=== PATIENT | female | born 1945 | race Caucasian/White ===

== ENCOUNTER 2017-12-03 01:47 | Outpatient (CLI) | payer MEDICARE, OTHER, SELFPAY ==
[2017-12-03 08:08] LABS: HCT 46.1 % (36.0-46.0); HGB 15.1 g/dL (12.0-15.5); Mean Corp. HGB Concentration 32.8 g/dL (32.0-36.0); Mean Corpuscular Hemoglobin 30.3 pg (27.0-33.0); Mean Corpuscular Volume 92.4 fL (80-95); Mean Platelet Volume 10.5 fL (8.0-11.0); Platelet Count 192 x1000/uL (130-400); RBC 4.99 m/cumm (4.00-5.20); RBC Distribution Width 13.1 % (11.7-14.6); White Blood Cell Count 5.57 k/cumm (4.4-10.8)
[2017-12-03 08:49] LABS: ALT 24 U/L (12-78); AST 25 U/L (15-37); Albumin 4.3 g/dL (3.4-5.0); Alkaline Phosphatase 70 U/L (46-116); Anion Gap 11.3 mmol/L (3-11); BUN 15 mg/dL (7-18); Bilirubin, Total 0.4 mg/dL (0.2-1.0); CO2 23.7 mmol/L (21.0-32.0); CREATININE 0.76 mg/dL (0.55-1.02); Calcium 9.1 mg/dL (8.5-10.1); Chloride 103 mmol/L (98-107); Cholesterol 327 mg/dL (50-200); Glucose 84 mg/dL (70-100); HDL Cholesterol 68 mg/dL (40-60); LDL CHOLESTEROL 234 mg/dL (<100); Potassium 4.4 mmol/L (3.5-5.1); Sodium 138 mmol/L (136-145); Total Protein 7.5 g/dL (6.4-8.2); Triglyceride 147 mg/dL (30-150)
[2017-12-03 08:51] LABS: ESR 22 MM/HR (0-30)
[2017-12-03 09:05] LABS: Creatine Kinase 114 U/L (26-192)
== END 2017-12-03 02:07 ==
PROVIDERS: Visit Provider Family Medicine
DX: E78.5 Hyperlipidemia, unspecified (principal); M25.50 Pain in unspecified joint
CPT/HCPCS: 36415; 80053; 80061; 82550; 83721; 85027; 85652

== ENCOUNTER 2018-12-01 07:10 | Outpatient (CLI) | payer MEDICARE, OTHER, SELFPAY ==
[2018-12-01 07:40] LABS: HCT 46.9 % (36.0-46.0); HGB 15.1 g/dL (12.0-15.5); Mean Corp. HGB Concentration 32.2 g/dL (32.0-36.0); Mean Corpuscular Hemoglobin 29.6 pg (27.0-33.0); Mean Platelet Volume 10.1 fL (8.0-11.0); Platelet Count 208 x1000/uL (130-400); RBC Distribution Width 13.3 % (11.7-14.6); White Blood Cell Count 4.76 k/cumm (4.4-10.8)
[2018-12-01 08:05] LABS: ALT 24 U/L (14-59); AST 21 U/L (15-37); Albumin 4.4 g/dL (3.4-5.0); Alkaline Phosphatase 77 U/L (46-116); Anion Gap 11.2 mmol/L (3-11); BUN 11 mg/dL (7-18); Bilirubin, Total 0.5 mg/dL (0.2-1.0); CO2 24.8 mmol/L (21.0-32.0); CREATININE 0.77 mg/dL (0.55-1.02); Calcium 9.8 mg/dL (8.5-10.1); Calculated LDL 242 mg/dL; Chloride 102 mmol/L (98-107); Cholesterol 350 mg/dL (50-200); Glucose 91 mg/dL (70-100); HDL Cholesterol 65 mg/dL (40-60); Sodium 138 mmol/L (136-145); Total Protein 8.4 g/dL (6.4-8.2); Triglyceride 217 mg/dL (30-150)
== END 2018-12-01 07:30 ==
PROVIDERS: PCP Family Medicine; Visit Provider Family Medicine
DX: R73.01 Impaired fasting glucose (principal); E78.5 Hyperlipidemia, unspecified; M25.50 Pain in unspecified joint; R03.0 Elevated blood-pressure reading, without diagnosis of hypertension; D24.9 Benign neoplasm of unspecified breast
CPT/HCPCS: 36415; 80053; 80061; 85027

== ENCOUNTER 2018-12-11 01:51 | Outpatient (CLI) | payer MEDICARE, OTHER, SELFPAY ==
--- NOTE | 2018-12-11 13:30 | DI.MAMMO_ITS ---
EXAM: MG MAMMO SCREENING CLINICAL HISTORY: SCREENING Z12.31. TECHNIQUE: Mammograms were interpreted according to the usual protocol including computer analysis with CAD system, tomosynthesis and C-view imaging. COMPARISON: Comparison is made with previous images. FINDINGS: The breast tissue is heterogeneously radiodense. There is no evidence of a dominant mass or suspiciou s calcification and there has been no appreciable interval change when compared with previous images. IMPRESSION: No evidence of malignancy, category 1. Breast density, category C. Annual screening mammography is r ecommended. BI-RADS Cat 1 - Negative. Breast Density - Category C - Heterogeneously dense
== END 2018-12-11 02:11 ==
PROVIDERS: PCP Family Medicine; Visit Provider Family Medicine
DX: Z12.31 Encounter for screening mammogram for malignant neoplasm of breast (principal)
CPT/HCPCS: 77063; 77067

== ENCOUNTER 2020-11-30 02:51 | Outpatient (CLI) | payer MEDICARE, OTHER, SELFPAY ==
[2020-11-30 09:40] LABS: ALT 27 U/L (14-59); AST 20 U/L (15-37); Albumin 4.4 g/dL (3.4-5.0); Alkaline Phosphatase 70 U/L (46-116); BUN 11 mg/dL (7-18); Bilirubin, Total 0.5 mg/dL (0.2-1.0); CREATININE 0.7 mg/dL (0.55-1.02); Calcium 9.3 mg/dL (8.5-10.1); Calculated LDL 203 mg/dL (<100); Chloride 104 mmol/L (98-107); Cholesterol 299 mg/dL (<200); Glucose 84 mg/dL (74-106); HDL Cholesterol 51 mg/dL (40-60); Potassium 3.9 mmol/L (3.5-5.1); Sodium 141 mmol/L (136-145); Total Protein 7.4 g/dL (6.4-8.2); Triglyceride 229 mg/dL (<150)
[2020-11-30 09:55] LABS: Vitamin D 25 Total 29.6 ng/mL (30-100)
== END 2020-11-30 02:52 | disposition home or self-care (01) ==
LOC: LBO 02:51
PROVIDERS: PCP Family Medicine; Visit Provider Family Medicine
DX: E78.5 Hyperlipidemia, unspecified (principal); E55.9 Vitamin D deficiency, unspecified; E66.9 Obesity, unspecified; M25.59 Pain in other specified joint
CPT/HCPCS: 36415; 80053; 80061; 82306

== ENCOUNTER 2021-01-04 02:05 | Outpatient (CLI) | payer MEDICARE, OTHER, SELFPAY ==
--- NOTE | 2021-01-04 | DI.MAMMO_ITS ---
Exam(s) MAMMO SCREENING EXAM: MAMMO SCREENING CLINICAL HISTORY: SCREENING, Z12.31 TECHNIQUE: Mammograms were interpreted according to the usual protocol including computer analysis w [employer] system, tomosynthesis and C-view imaging. COMPARISON: FINDINGS: The breasts are of moderate density. There is focal asymmetric density in the upper outer quadrant o f the left breast, unchanged from multiple prior examinations including November 2018. No new mass or clumped microcalcification seen. IMPRESSION: No specific evidence of malignancy at this time. Routine screening examinations are suggested at yea rly intervals in this age group according to the ACS ACR guidelines. BI-RADS Category 1 - Negative Breast Density - Category B - Scattered areas of fibroglandular density
== END 2021-01-04 02:25 ==
PROVIDERS: PCP Family Medicine; Visit Provider Family Medicine
DX: Z12.31 Encounter for screening mammogram for malignant neoplasm of breast (principal)
CPT/HCPCS: 77063; 77067

== ENCOUNTER → 2022-01-07 02:03 | Outpatient (CLI) | payer MEDICARE, OTHER, SELFPAY ==
--- NOTE | 2022-01-07 17:30 | DI.MAMMO_ITS ---
Exam(s) MAMMO SCREENING EXAM: MAMMO SCREENING CLINICAL HISTORY: SCREENING, Z12.31 TECHNIQUE: Bilateral full field digital CC and MLO mammographic images were obtained with 3D tomosyn thesis and utilizing computer aided detection (CAD). COMPARISON: Available for comparison. FINDINGS: Masses/Architectural Distortion: None seen. Microcalcifications: No suspicious pleomorphic-type are seen. Skin Thickening/Nipple Retraction: None. IMPRESSION: 1. No significant interval change with no specific features of malignancy noted. 2. Unless there is more urgent need, screening mammography is recommended, as per [employer] guidelines. BI-RADS Category 1 - Negative Breast Density - Category B - Scattered areas of fibroglandular density Breast density category C or D implies that the patient has dense breast tissue. Dense breast tissue is very common and is not abnormal but dense breast tissue can make it harder to find cancer on a ma mmogram. Also, dense breast tissue may increase their breast cancer risk. This information about the result of the mammogram report was provided to the patient to raise their awareness. Use this report when you speak with the patient about their risks for breast cancer, which includes their family hist ory. At that time, you may recommend for more screening tests (Ultrasound or MRI) as they might be us eful based on their risk. A negative radiographic report should not delay biopsy if a dominant or clinically suspicious mass is present. Up to ten percent of cancers are not identified on mammography. A negative report may reinforce clinical impression. Adenosis and dense breasts may obscure an underlying neoplasm. False positive reports average 6 to 10%. Patient will receive a letter notifying them of these results.
== END ==
PROVIDERS: PCP Family Medicine; Visit Provider Family Medicine
DX: Z12.31 Encounter for screening mammogram for malignant neoplasm of breast (principal)
CPT/HCPCS: 77063; 77067

== ENCOUNTER 2022-02-21 09:46 | Outpatient (CLI) | payer MEDICARE, OTHER, SELFPAY ==
--- NOTE | 2022-02-21 09:00 | DI.RAD_ITS ---
Exam(s) XR KNEE RT 3V AP,LAT,JOANIE EXAM: XR KNEE RT 3V AP,LAT,JOANIE CLINICAL HISTORY: right knee pain TECHNIQUE: COMPARISON: No exams were available for comparison FINDINGS: Three views were obtained. There is a probable knee joint effusion. There is a superior patellar en thesophyte. There are minimal marginal osteophytes of all 3 joints of the knee consistent with degen erative change. No other bony or soft tissue abnormality seen. IMPRESSION: RADIATION DOSE DELIVERED: Total DLP
== END 2022-02-21 09:47 | disposition home or self-care (01) ==
LOC: DIORS 09:47
PROVIDERS: PCP Family Medicine; Referring Provider Family Medicine; Visit Provider Student in an Organized Health Care Education/Training Program
DX: M17.11 Unilateral primary osteoarthritis, right knee (principal); M23.91 Unspecified internal derangement of right knee
CPT/HCPCS: 20610; 73562; 99203; J1040

== ENCOUNTER 2022-06-19 01:36 | Outpatient (CLI) | payer MEDICARE, OTHER, SELFPAY ==
--- NOTE | 2022-06-19 07:00 | DI.MRI_ITS ---
Exam(s) MR LOWER JOINT RT WO EXAM: MR LOWER JOINT RT WO CLINICAL HISTORY: pain,internal derangement,m23.91. TECHNIQUE: Multiplanar multisequence MRI was performed. COMPARISON: CR XR KNEE RT 3V AP,LAT,JOANIE from 02/21/2022 FINDINGS: BONES: There is no fracture or contusion pattern. JOINTS: Articular cartilage is unremarkable. There is a small joint effusion. TENDONS: Extensor mechanism: Unremarkable. Medial retinaculum: Unremarkable. Lateral retinaculum: Unremarkable. Popliteus: Unremarkable. MUSCLES: Unremarkable. MENISCI: There is a tear of the body and posterior horn of the medial meniscus. The lateral meniscus is unremarkable. SOFT TISSUES: There is a popliteal cyst present. LIGAMENTS: Anterior Cruciate: Unremarkable. Posterior Cruciate: Unremarkable. Medial Collateral:Unremarkable. Lateral Collateral: Unremarkable. OTHER: IMPRESSION: 1. There is a tear of the body and posterior horn of the medial meniscus. 2. There is no evidence of a ligament tear. 3. Small joint effusion and popliteal cyst. DATA REPOSITORY:
== END 2022-06-19 01:56 ==
LOC: DI 01:36
PROVIDERS: PCP Family Medicine; Visit Provider Student in an Organized Health Care Education/Training Program
DX: M23.8X1 Other internal derangements of right knee; M25.561 Pain in right knee; M25.461 Effusion, right knee; S83.241A Other tear of medial meniscus, current injury, right knee, initial encounter; M71.21 Synovial cyst of popliteal space [Baker], right knee
CPT/HCPCS: 73721

== ENCOUNTER → 2022-06-21 10:34 | Outpatient (BNVA) | payer MEDICARE, OTHER, SELFPAY | PROVIDERS: PCP Family Medicine; Referring Provider Family Medicine; Visit Provider Student in an Organized Health Care Education/Training Program | DX: S83.231A Complex tear of medial meniscus, current injury, right knee, initial encounter (principal); X58.XXXA Exposure to other specified factors, initial encounter | CPT/HCPCS: 99214 ==

== ENCOUNTER 2022-07-31 09:40 | Day surgery (SDC) | payer MEDICARE, SELFPAY ==
[2022-07-31] VITALS (8 sets, daily range): BP systolic 133–221; BP diastolic 73–109; PULSE 69–90; RESP 16–18; TEMP 36.2–36.6; O2SAT 96–99; BMI 26.9
[2022-07-31] MEDS: Acetaminophen 500 MG TAB 1000 MG PO (10:20)
[2022-07-31] MEDS: Lactated Ringers 1,000 ML 80 ML IV (10:21)
[2022-07-31] MEDS: Celecoxib 200 MG CAP 400 MG PO (10:21)
--- NOTE | 2022-07-31 10:53 | W.ANESPRE ---
General Info Date of Service Date Performed: 07/31/22 Height: 5 ft 4 in Weight: 71.3 kg Body Mass Index (BMI): 26.9 Surgical Procedure: Operation Date: 07/31/22 12:10 Proposed Procedure Side Surgeon p Knee Arthroscopy, Partial Medial Menisectomy Right Jhon Warner MD Meds Allergies and Home Medications Allergies Allergy/AdvReac Type Severity Reaction Status Date / Time No Known Allergies Allergy Unverified 07/31/22 09:50 Home Medication Medication Instructions Recorded cholecalciferol (vitamin D3) 25 25 mcg PO DAILY 01/07/22 mcg (1,000 unit) capsule Current Visit Medications: Current Medications Generic Name Dose Route Start Last Admin Trade Name Freq PRN Reason Stop Dose Admin Acetaminophen 1,000 mg 07/31/22 06:00 07/31/22 10:20 Acetaminophen 500 Mg Tab PO 07/31/22 18:00 1,000 mg PREOP CORRINE Administration Celecoxib 400 mg 07/31/22 06:00 07/31/22 10:21 Celecoxib 200 Mg Cap PO 07/31/22 18:00 400 mg PREOP CORRINE Administration Ringer's Solution 1,000 mls @ 80 mls/hr 07/31/22 06:00 07/31/22 10:21 IV 08/29/22 23:59 80 mls/hr INFUSION CORRINE Administration Cefazolin Sodium/Dextrose 2 gm in 50 mls @ 100 mls/hr 07/31/22 06:00 Ancef Duplex IVPB 07/31/22 16:00 PREOP CORRINE IV Miscellaneous Supplies 1 each 07/31/22 06:00 Iv Access IV 08/29/22 23:59 DIRECTED CORRINE Sodium Chloride 0 ml 07/31/22 06:00 Normal Saline Flush 10 Ml Syr IV 08/29/22 23:59 PRN PRN Sodium Chloride 0 ml 07/31/22 06:00 Normal Saline 10 Ml Vial IJ 08/29/22 23:59 DIRECTED PRN Sterile Water 0 ml 07/31/22 06:00 Water,Injection,Sterile 10 Ml Vial IJ 08/29/22 23:59 DIRECTED PRN PFSH Active Problems Active Problems: Problem Status Onset Code Complex tear of medial meniscus of right knee S83.231A Primary osteoarthritis of right knee M17.11 Internal derangement of right knee M23.91 Osteoporosis M81.0 Obesity E66.9 Colon cancer screening Z12.11 Medical History Medical History Hyperlipidemia Pulmonary nodule Vitamin D deficiency Surgical History Surgical History Benign tumor right foot Cholecystectomy Colonoscopy - IV Sedation (01/12/16) Tobacco Smoking/Tobacco Use Status: Never Alcohol Alcohol Intake: current Alcohol intake frequency: holidays/special occasions only Substance Use Substance use: Never Substance use type: does not use Vital Signs and Lab Results Vital Signs Most Recent Vital Signs in EMR: Most Recent Vital Signs Temp Pulse Resp BP Pulse Ox 36.5 C 76 16 152/77 H 98 07/31/22 09:50 07/31/22 09:50 07/31/22 09:50 07/31/22 09:50 07/31/22 09:50 Lab Results Blood Type / Crossmatch: No Data to Display Complete Blood Count: No Data to Display Complete Metabolic Panel: No Data to Display Liver Function Panel: No Data to Display Coagulation Panel: No Data to Display Cardiac Panel: No Data to Display Arterial Blood Gas: No Data to Display Venous Blood Gas: No Data to Display Pancreas Panel: No Data to Display Thyroid Panel: No Data to Display Infectious Disease: No Data to Display Blood Cultures: No Data to Display Toxicology Panel: No Data to Display Anesthesia Assessment and Plan Anesthesia History Personal History: No History of Anesthesia Complications Family History: No Family History of Anesthesia Complications Exercise Tolerance Exercise Tolerance: Metabolic Equivalents>4 Cardiac & Pulmonary Exam Cardiac Exam: Normal S1/S2 Heart Sounds Pulmonary Exam: Clear Bilateral Breath Sounds Implantable Cardiac Device Does patient have a Pacemaker or an ICD?: No Airway Exam Known Difficult Airway: No Mallampati Class: 4 Mouth Opening: Normal (> 3cm) Thyromental Distance: Greater than 3 cm Neck Range of Motion: Limited ROM Neck Circumference: Normal Teeth Condition: Normal Dentition ASA Classification ASA Score: ASA 2 Emergency Case?: No NPO Status NPO Status: NPO Clears >2 hours, Solids >8 hours Anesthesia Plan Resuscitation Status: Full Code Anesthesia Technique: General Anesthesia Airway Planned: LMA Monitors Used: Standard Monitors
--- NOTE | 2022-07-31 11:27 | W.PREOPHP ---
Assessment and Plan Assessment and plan (1) Complex tear of medial meniscus of right knee: Status: Acute Assessment and plan: Xochitl is a 77-year-old active female who has a meniscal tear about the right knee. She continues have pain limitations despite other nonoperative options. Given the persistence of her symptoms and the minimal arthritic findings on the MRI and x-ray, I offered a partial medial meniscectomy done arthroscopically. I reviewed the technical features of this case. I discussed the risk to include bleeding, infection, pain, stiffness, worsening arthritis, recurrence or retear, need for repeat procedures, blood clot. Despite these risk, she elected to proceed. History of Present Illness History of Present Illness Chief Complaint: Right knee medial meniscal tear Narrative: Xochitl is a 77-year-old active female who has had continued limitations about her right knee. She has failed a host of nonoperative options but continues have pain limitations, mostly from a medial meniscal tear. MRI confirmed this finding. Please see the previous office note for complete detailed history. She is here today for arthroscopic intervention to the right knee with partial medial meniscectomy. He has had no changes to her health. No chest pain or shortness of breath. No recent sick contacts. No fevers no chills. Review of Systems All systems reviewed & are unremarkable except as noted in HPI and below PFSH All Active Problems Complex tear of medial meniscus of right knee (Acute) Primary osteoarthritis of right knee (Acute) Steroid injection: 02/21/2022 Internal derangement of right knee (Acute) Osteoporosis (Chronic) Obesity (Chronic) Colon cancer screening (Acute) Medical History Hyperlipidemia Pulmonary nodule Vitamin D deficiency Surgical History Benign tumor right foot Cholecystectomy Colonoscopy - IV Sedation (01/12/16) Social History Smoking/Tobacco Use Status: Never Smoking risk assessment performed?: Yes Alcohol Intake: current Alcohol Intake frequency: holidays/special occasions only Drug use: Never Substance use type: does not use Do you feel safe at home: Yes Do you feel safe in your relationship?: Yes Additional Social history: lives alone Meds Allergies and Home Medications Allergies Allergy/AdvReac Type Severity Reaction Status Date / Time No Known Allergies Allergy Unverified 07/31/22 09:50 Home Medications Medication Instructions Recorded Confirmed Type cholecalciferol (vitamin D3) 25 25 mcg PO DAILY 01/07/22 07/30/22 History mcg (1,000 unit) capsule Exam Resp Effort & Inspection: normal respiratory effort and able to speak in complete sentences Auscultation: clear to auscultation bilaterally Cardio Rate: regular rate Rhythm: regular rhythm Heart Sounds: murmur systolic soft and II/ Results Last Vital Signs Temp 36.5 C 07/31/22 09:50 Pulse 76 07/31/22 09:50 Resp 16 07/31/22 09:50 BP 152/77 H 07/31/22 09:50 Pulse Ox 98 07/31/22 09:50
[2022-07-31] MEDS: ceFAZolin 2 GM/50 ML BAG IVPB (13:25)
[2022-07-31] MEDS: Bupivacaine 0.5% Pres-Free 30 ML VIAL (13:50)
--- NOTE | 2022-07-31 13:58 | W.PM.DSUDISC ---
Date of service: 07/31/22 Time of Service: 13:58 Discharge Plan Disposition Condition: Good Discharge Details Reason For Visit: R knee arthroscopy Attending Provider: Jhon Warner Primary Care Provider: Xochitl Cleary Home Meds and New Rx's Prescriptions: New hydrocodone-acetaminophen 5-325 mg tablet 1 tab PO Q6H PRN (Reason: pain) Qty: 12 0RF acetaminophen 500 mg tablet 1,000 mg PO TID Qty: 90 0RF ibuprofen 600 mg tablet 600 mg PO TID PRN (Reason: pain) Qty: 90 0RF Continued cholecalciferol (vitamin D3) 25 mcg (1,000 unit) capsule 25 mcg PO DAILY Discharge Instructions Stand Alone Forms: Timmy Knee Arthroscopy Referrals: Jhon Warner MD [ [facility] ST[facility]FF PHYSICIAN] - Equipment/Supplies: Partial Weight Bearing Crutches Activity:: Activity as Tolerated Remove Dressings/Wound Care:: 72 hours Shower/Bathe:: 72 hours Activity:: Activity as Tolerated Diet:: As Tolerated DS: Diagnosis Discharge Diagnosis (1) Complex tear of medial meniscus of right knee: Status: Acute
[2022-07-31] MEDS: EPINEPHrine 30 MG/30 ML VIAL (14:01)
[2022-07-31] MEDS: fentaNYL 100 MCG/2 ML VIAL IVP ×2 (14:20→14:35)
--- NOTE | 2022-07-31 14:39 | W.ANESPOSTOP ---
Postoperative Evaluation Date, Time and Location Date Performed: 07/31/22 Time Performed: 14:39 Patient Location: PACU Vital Signs Most Recent Imported Vital Signs: Most Recent Vital Signs Temp Pulse Resp BP Pulse Ox 36.5 C 79 18 202/98 H 98 07/31/22 14:25 07/31/22 14:25 07/31/22 14:25 07/31/22 14:25 07/31/22 14:25 Temp Pulse Resp BP Pulse Ox 36.6 C 79 16 170/75 H 96 07/31/22 14:40 07/31/22 14:40 07/31/22 14:40 07/31/22 14:40 07/31/22 14:40 Pain Score Most Recent Pain Score: Most Recent Pain Score Pain Level 8 07/31/22 14:25 Assessment Mental Status: Awake (Alert & Oriented to Patient Baseline) Airway and Respiratory Function: Patent airway with normal (patient baseline) respiratory exam Cardiovascular Function: Hemodynamically Stable Hydration Status: Adequately Hydrated Nausea & Vomiting: No Nausea or Vomiting Pain: Pain is tolerable per patient Peripheral Nerve Block: Patient did not receive a nerve block
--- NOTE | 2022-07-31 17:34 | W.PM.OP ---
Date of service: 07/31/22 Time of Service: 14:00 Operative Note Operative Note DATE OF PROCEDURE: 07/31/22 PRE-OP DIAGNOSIS: Left Knee Medial Meniscus Tear POST-OP DIAGNOSIS: same PROCEDURE: Arthroscopic Left Knee Partial Medial Menisectomy SURGEON: Jhon Warner ANESTHESIA TYPE: General LMA/ETT Refer to Anesthesia Record ESTIMATED BLOOD LOSS: 0 PATHOLOGY: none sent COMPLICATIONS: None Patient was transported to: PACU Patient's condition: stable Indications: I have seen Xochitl in clinic for symptoms of a meniscus tear. This was confirmed based on MRI and exam findings. Nonoperative measures were exhausted but disability and pain persisted. I discussed knee arthroscopy with meniscal intervention with the patient. I reviewed the risks of the procedure to include, but not limited to, bleeding, infection, pain, stiffness, damage to nerves or vessels, recurrence, blood clot. Despite these risks, the patient elected to proceed. 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 The consent was reviewed with the patient and signed. The history and physical was updated. All questions were answered. She was taken back to the operating room. The patient was placed into the supine position on the operating room table. All bony prominences were well padded. Prophylactic antibiotics in the form of Cefazolin were administered. The right leg was then prepped with Chloraprep and draped in a standard fashion with stockinette and extremity drape. A timeout to confirm correct identity, side and site, procedure, allergies, anesthesia, and medical concerns was performed. The leg was placed into a pneumatic leg estrada, [id number]. A standard lateral portal was made at the lateral border of the patella tendon in line with the inferior pole of the patella, soft spot. The skin and deep tissue was incised sharply and the blunt trochar was inserted atraumatically. A diagnostic arthroscopy was performed and the findings are listed above. The suprapatellar pouch had no significant inflammatory change. The patellofemoral articulation showed Grade I chondromalacia of the trochlea as well as good tracking. The lateral gutter had no loose bodies and the medial gutter had no loose bodies. The knee was brought into some valgus stress in extension to open the medial compartment. A medial portal was made, localized by a spinal needle. The portal was created with an #11 blade through skin and capsule under direct visualization avoiding any meniscal injury. A probe was then inserted into the medial compartment. The medial compartment was fully inspected. The chondral surface of the tibia showed Grade II chondromalacia and the surface of the femur showed Grade II chondromalacia posteriorly. The medial meniscus had a complex tear of the posterior horn and body extending into the root partially. After evaluation, the meniscus was debrided down to a stable base using a series of biters and arthroscopic john paul. It was probed afterwards to confirm that the tear had been removed and the meniscus was stable. The notch was then inspected which showed an intact ACL and an intact PCL. The leg was then brought into a figure of 4 position. The lateral compartment was fully inspected with the arthroscope and a probe. The chondral surface of the lateral femur showed minimal chondromalacia. The chondral surface of the lateral tibia showed Grade II chondromalacia with some fissuring. The lateral meniscus had no meniscal tear. The arthroscope was brought back into the suprapatellar pouch and the leg was in full extension. The knee was thoroughly irrigated with the arthroscopic fluid on high flow and pressure. Inflow was stopped and excess fluid was removed. The wounds were closed with 4-0 Nylon. They were dressed with Xeroform, 4x4 gauze, ABD pad, Kerlix and an ION wrap. A cryo-cuff was applied. The patient tolerated the procedure well and was returned to the Same Day Surgery area in a stable condition suffering no known complication.
== END 2022-07-31 16:28 | disposition home or self-care (01) ==
PROVIDERS: PCP Family Medicine; Visit Provider Student in an Organized Health Care Education/Training Program
PROC: (CPT 29870; principal; 2022-07-31 12:00)
DX: M23.232 Derangement of other medial meniscus due to old tear or injury, left knee (principal); M94.262 Chondromalacia, left knee
CPT/HCPCS: 29881; J0690; J1100; J1885; J2250; J2405; J2704; J3010

== ENCOUNTER → 2022-08-12 09:33 | Outpatient (BNVA) | payer MEDICARE, SELFPAY | PROVIDERS: PCP Family Medicine; Referring Provider Family Medicine; Visit Provider Student in an Organized Health Care Education/Training Program | DX: Z47.89 Encounter for other orthopedic aftercare (principal) ==

== ENCOUNTER → 2022-11-26 10:28 | Outpatient (CLI) | payer MEDICARE, SELFPAY ==
--- NOTE | 2022-11-26 | DI.RAD_ITS ---
Exam(s) XR CHEST 2V PA LATERAL EXAM: XR CHEST 2V PA LATERAL CLINICAL HISTORY: [id number]. TECHNIQUE: 2D digital imaging was performed. COMPARISON: CT CHEST WITHOUT CONTRAST from 09/16/2017 FINDINGS: 2 views: Heart size is normal. The mediastinum is not widened. Lungs are clear. No infiltrates nor pleural effusions. IMPRESSION: No acute pulmonary findings. DATA REPOSITORY: RADIATION DOSE DELIVERED:
== END ==
PROVIDERS: PCP Family Medicine; Visit Provider Nurse Practitioner Family
DX: R05.8 Other specified cough (principal)
CPT/HCPCS: 71046

== ENCOUNTER 2022-11-28 04:16 | Outpatient (CLI) | payer MEDICARE, SELFPAY ==
[2022-11-28 08:51] LABS: ALT 22 U/L (14-59); AST 22 U/L (15-37); Albumin 3.9 g/dL (3.4-5.0); Alkaline Phosphatase 78 U/L (46-116); Anion Gap 8.1 mmol/L (3-11); BUN 12 mg/dL (7-18); Bilirubin, Total 0.6 mg/dL (0.2-1.0); CO2 29.9 mmol/L (21.0-32.0); CREATININE 0.7 mg/dL (0.55-1.02); Calcium 9.6 mg/dL (8.5-10.1); Calculated LDL 178 mg/dL (<100); Chloride 101 mmol/L (98-107); Cholesterol 272 mg/dL (<200); Estimated GFR 90.14 (mL/min/1.73m2); Glucose 107 mg/dL (74-106); HDL Cholesterol 54 mg/dL (40-60); Potassium 3.6 mmol/L (3.5-5.1); Sodium 139 mmol/L (136-145); Total Protein 7.9 g/dL (6.4-8.2); Triglyceride 203 mg/dL (<150)
[2022-11-28 09:13] LABS: Vitamin D 25 Total 34.8 ng/mL (30-100)
== END 2022-11-28 04:17 | disposition home or self-care (01) ==
LOC: LBO 04:16
PROVIDERS: PCP Family Medicine; Visit Provider Family Medicine
DX: E78.5 Hyperlipidemia, unspecified (principal); E55.9 Vitamin D deficiency, unspecified
CPT/HCPCS: 36415; 80053; 80061; 82306

== ENCOUNTER → 2023-01-17 00:32 | Outpatient (CLI) | payer MEDICARE, SELFPAY ==
--- NOTE | 2023-01-17 11:36 | DI.MAMMO_ITS ---
Exam(s) MAMMO SCREENING EXAM: MAMMO SCREENING CLINICAL HISTORY: SCREENING, Z12.31 TECHNIQUE: Bilateral full field digital CC and MLO mammographic images were obtained with 3D tomosyn thesis and utilizing computer aided detection (CAD). COMPARISON: Available for comparison. FINDINGS: Masses/Architectural Distortion: None seen. Microcalcifications: No suspicious pleomorphic-type are seen. Skin Thickening/Nipple Retraction: None. IMPRESSION: 1. No significant interval change with no specific features of malignancy noted. 2. Unless there is more urgent need, screening mammography is recommended, as per [employer] guidelines. BI-RADS Category 1 - Negative Breast Density - Category B - Scattered areas of fibroglandular density Breast density category C or D implies that the patient has dense breast tissue. Dense breast tissue is very common and is not abnormal but dense breast tissue can make it harder to find cancer on a ma mmogram. Also, dense breast tissue may increase their breast cancer risk. This information about the result of the mammogram report was provided to the patient to raise their awareness. Use this report when you speak with the patient about their risks for breast cancer, which includes their family hist ory. At that time, you may recommend for more screening tests (Ultrasound or MRI) as they might be us eful based on their risk. A negative radiographic report should not delay biopsy if a dominant or clinically suspicious mass is present. Up to ten percent of cancers are not identified on mammography. A negative report may reinforce clinical impression. Adenosis and dense breasts may obscure an underlying neoplasm. False positive reports average 6 to 10%. Patient will receive a letter notifying them of these results.
== END ==
PROVIDERS: PCP Family Medicine; Visit Provider Family Medicine
DX: Z12.31 Encounter for screening mammogram for malignant neoplasm of breast (principal)
CPT/HCPCS: 77063; 77067

== ENCOUNTER → 2023-02-11 02:28 | Outpatient (CLI) | payer MEDICARE, SELFPAY ==
--- NOTE | 2023-02-11 07:30 | DI.US_ITS ---
APPROVED REPORT EXAM: Comprehensive 2D, Doppler, and color-flow Echocardiogram Patient Location: Out-Patient [place] Steward: Radha Steele RDCS (AE) Indications: Heart Murmur Other Information Study Quality: Adequate Conclusion Normal left ventricular wall thickness and chamber size. Ejection fraction is 60%. Wall motion is normal. There is stage I diastolic dysfunction, normal for age Normal right ventricular size and systolic function Both atria are normal in size Aortic valve is mildly sclerotic and trileaflet with mild regurgitation. There is no hemodynamically significant aortic stenosis Mitral annular calcification, mild mitral regurgitation Normal tricuspid valve with trace regurgitation. Estimated right ventricular systolic pressure is 30 mmHg Wall motion Left Ventricle The left ventricle is normal size. The left ventricular systolic function is normal. The left ventric ular ejection fraction is within the normal range. There is normal left ventricular wall thickness. T here is normal LV segmental wall motion. There is no ventricular septal defect visualized. LVEF is 60 %. Right Ventricle The right ventricle is normal size. The right ventricular systolic function is normal. Atria The left atrium size is normal. The right atrium size is normal. The interatrial septum is intact wit h no evidence for an atrial septal defect. Aortic Valve The Aortic valve is mildly sclerotic. Aortic valve is trileaflet. No hemodynamically significant valv ular aortic stenosis. Mild aortic regurgitation. Mitral Valve There is mitral annular calcification. No evidence of mitral valve stenosis. Mild mitral regurgitatio n. Tricuspid Valve The tricuspid valve is normal in structure. There is no tricuspid valve stenosis. Trace tricuspid reg urgitation. The RVSP is 30.3. Pulmonic Valve The pulmonary valve is normal in structure. There is no pulmonic valvular stenosis. Mild pulmonic reg urgitation. Great Vessels The aortic root is normal in size. The ascending aorta is normal Aortic arch is normal in caliber. IV C is normal in size and collapses >50% with inspiration. Pericardium There is no pericardial effusion. 2D Dimensions IVSD d PLAX 0.87 cm F: 0.6-1.0 Ao Root d 2.56 cm F: 2.7 - 3.3 LVPW d PLAX 0.85 cm F: 0.6 - 1.0 Ao Asc Diam d 3.23 cm F: 2.3 - 3.1 LVID d PLAX 4.04 cm F: 3.8 - 5.2 LVDs 2.63 cm F: 2.2 - 3.5 LV EF Teichholz 64.5 % FS 34.78 % LV EDV (Teich) 71.6 mL LV ESV (Teich) 25.4 mL M-Mode TAPSE 3.15 cm (M/F) >1.7 Auto EF LV EDV A4C 77.9 mL LV EDV A2C 85.0 mL LV EDV BP 80.5 mL LV ESV A4C 31.1 mL LV ESV A2C 33.2 mL LV ESV BP 32.2 mL LVEF(%) A4C 60.0 % LVEF(%) A2C 61.0 % LVEF(%) BP 60.0 % LV SV A4C 46.7 ml LV SV A2C 51.8 ml LV SV BP 48.4 ml LV CO A4C 2.7 L/min LV CO A2C 3.2 L/min LV CO BP 2.9 L/min HR A4C 58.35 BPM HR A2C 60.81 BPM LV EDV Index (BP) LV Strain Long Pk Overal Avg (s) 20.56 RV Strain Global Peak Long. Strain A4C 17.95 Global Peak Long. Strain A4C FW 20.50 LA Volume LA Length A4C 4.6 cm LA Length A2C 4.8 cm LA Area A4C s 17.40 cm2 LA Area A2C s 14.59 cm2 LA Vol A4C A-L 55.50 mL LA Vol A2C A-L 37.88 mL LA Vol Biplane A-L 46.6 mL LA Vol/BSA A4C A-L LA Vol/BSA A2C A-L LA Vol/BSA BP A-L 27.2 mL/m2 LA Vol A4C MOD 51.9 mL LA Vol A2C MOD 34.2 mL LA Vol BP MOD 42.6 mL RA Volume RA Area A4C 13.3 cm2 RA ESV A4C (A-L) 32.6mL RA Vol/BSA A4C A-L RA Length A4C 4.6 cm RA ESV A4C (MOD) 30.4mL LV Diastology MV E' medial 0.076 (>0.07 m/s) MV E Vmax 1.24 (0.4-1.3 m/s) MV E/E' MED 16.40 (<14) MV A Vmax 1.35 (0.4-1.3 m/s) MV E' lateral 0.072 (>0.1 m/s) E/A Ratio 0.9 MV E/E' LAT 17.32 (<14) MV E' Average 0.074 m/s MV E/E'(average) 16.84 Aortic Valve AoV Vmax 2.38 m/s LVOT Vmax 1.57 m/s AoV Peak Grad 50.5 mmHg LVOT Peak Grad 9.9 mmHg AoV Area (Vmax) 2.04 cm2 LVOT VTI 0.389 m AoV VTI 0.602 m LVOT Mean Grad 6.9 mmHg AoV Mean Antoine. 1.74 m/s LVOT SV 120.07 mL AoV Mean Grad 13.5 mmHg LVOT Diam s 1.95 cm AoV Area (VTI) 2.00 cm2 AV Regurg Peak Gr. 78.45 mmHg Velocity Ratio 0.66 AR Decel Beaver 2.1m/sec2 AR DT 2114 msec AR PHT 613 msec AR Vmax 4.43 m/s Mitral Valve MV DT 210 (160-240 msec) Pulmonary Valve PV Vmax 1.04 (0.5-1.5 m/s) RVOT Vmax 0.80 m/s PV Peak Grad 4.4 mmHg RVOT Peak Gr. 2.6 mmHg PV Mean Antoine 0.76 m/s RVOT VTI 0.188 m PV Mean Grad 2.6 mmHg RVOT Mean Gr. 1.5 mmHg Tricuspid Valve RA Pressure 3.00 mmHg TR Vmax 2.61 m/s TV S' 0.16 m/s TR Peak Grad 27.3 mmHg RVSP (TR) 30.3 mmHg
== END ==
PROVIDERS: PCP Family Medicine; Visit Provider Family Medicine
DX: R01.1 Cardiac murmur, unspecified (principal)
CPT/HCPCS: 93306

== ENCOUNTER 2023-12-09 03:19 | Outpatient (CLI) | payer MEDICARE, SELFPAY ==
[2023-12-09 10:27] LABS: HCT 44.8 % (36.0-46.0); HGB 14.6 g/dL (11.2-15.7); MCH 30.9 pg (27.0-33.0); MCHC 32.6 % (32.0-36.0); MCV 95 fL (80-95); Platelet Count 196 10^3/uL (130-400); RBC 4.73 10^6/uL (3.93-5.22); RDW 12.6 % (11.7-14.6); RDW-SD 44.2 fL; WBC 5.87 10^3/uL (4.4-10.8)
[2023-12-09 10:47] LABS: ALT 22 U/L (14-59); AST 22 U/L (15-37); Albumin 4.1 g/dL (3.4-5.0); Alkaline Phosphatase 82 U/L (46-116); BUN 12 mg/dL (7-18); Bilirubin, Total 0.32 mg/dL (0.2-1.0); CREATININE 0.8 mg/dL (0.55-1.02); Calcium 9.5 mg/dL (8.5-10.1); Calculated LDL 196 mg/dL (<100); Chloride 103 mmol/L (98-107); Cholesterol 319 mg/dL (<200); Estimated GFR 76.31 (mL/min/1.73m2); Glucose 106 mg/dL (74-106); HDL Cholesterol 66 mg/dL (40-60); Potassium 3.7 mmol/L (3.5-5.1); Sodium 140 mmol/L (136-145); Total Protein 7.9 g/dL (6.4-8.2); Triglyceride 288 mg/dL (<150)
== END 2023-12-09 03:20 | disposition home or self-care (01) ==
LOC: LBO 03:19
PROVIDERS: PCP Family Medicine; Visit Provider Family Medicine
DX: I10 Essential (primary) hypertension (principal)
CPT/HCPCS: 36415; 80053; 80061; 85027